=== PATIENT | male | born 1980 | race Two or more races ===

== ENCOUNTER 2017-06-15 23:41 | Emergency (ER) | payer BC ==
--- NOTE | 2017-06-16 00:11 | EDM.PDOC ---
ED HPI GENERAL MEDICAL PROBLEM - General Chief Complaint: Gastrointestinal Problem Stated Complaint: NAUSEA/THROBBING IN STOMACH Time Seen by Provider: 06/16/17 00:11 Source of Information: Reports: Patient History Limitations: Reports: No Limitations - History of Present Illness INITIAL COMMENTS - FREE TEXT/NARRATIVE: 36-year-old male presents to the ED with diffuse lower abdominal discomfort associate with development of rather actively profuse diarrhea starting about 10 :00 he said 5 loose watery stools with no blood since that time. He did have diffuse lower abdominal discomfort last night that's was transient. Of note his had the flu bug over the weekend with nausea vomiting diarrhea but it was short limited. There is a possibility of foodborne illnesses he does eat away from home in good deal. At present his abdominal cramps that are quite severe. Associated nausea vomiting due to the intensity of the pain. Patient is had no previous abdominal surgery. Onset: Today, Sudden Onset Date: 06/15/17 Onset Time: 21:00 Duration: Hour(s): Location: Reports: Abdomen (Abdominal cramping pain with nausea vomiting diarrhea.) Quality: Reports: Ache, Sharp, Stabbing Severity: Moderate Improves with: Reports: None Worsens with: Reports: Other Context: Reports: Sick Contact. Denies: Activity, Exercise (Taking any fluids) , Lifting, Trauma, Other Associated Symptoms: Reports: No Other Symptoms, Nausea/Vomiting, Other ( Diarrhea) Treatments TELEPATHIST: Reports: Other (see below) (9.) - Related Data Allergies Allergy/AdvReac Type Severity Reaction Status Date / Time No Known Allergies Allergy Verified 06/15/17 23:59 Home Meds: Home Meds Dicyclomine [Bentyl] 20 mg PO Q6H PRN #5 tablet 06/16/17 [Rx] Ondansetron [Zofran ODT] 4 mg PO Q6H #5 tab.dis 06/16/17 [Rx] Past Medical History Gastrointestinal History: Reports: Chronic Constipation Psychiatric History: Reports: Anxiety, Depression - Past Surgical History HEENT Surgical History: Reports: Naso-Sinus Surgery Social & Family History - Family History Family Medical History: Noncontributory - Tobacco Use Smoking Status *Q: Never Smoker - Caffeine Use Caffeine Use: Reports: Coffee, Soda - Recreational Drug Use Recreational Drug Use: No ED ROS GENERAL - Review of Systems Review Of Systems: See Below Constitutional: Reports: Chills, Malaise, Weakness, Fatigue, Decreased Appetite. Denies: Fever, Weight Loss HEENT: Reports: No Symptoms Respiratory: Reports: No Symptoms Cardiovascular: Reports: No Symptoms Endocrine: Reports: No Symptoms GI/Abdominal: Reports: Abdominal Pain, Diarrhea (See history of present illness) , Nausea, Vomiting : Reports: No Symptoms Musculoskeletal: Reports: No Symptoms Skin: Reports: No Symptoms Neurological: Reports: No Symptoms Psychiatric: Reports: No Symptoms Hematologic/Lymphatic: Reports: No Symptoms Immunologic: Reports: No Symptoms ED EXAM, GI/ABD - Physical Exam Exam: See Below Exam Limited By: No Limitations General Appearance: Alert, WD/WN, Anxious, Mild Distress Eyes: Bilateral: Normal Appearance (no jaundice) Head: Atraumatic, Normocephalic Neck: Normal Inspection, Supple, Non-Tender, Full Range of Motion. No: Lymphadenopathy (L), Lymphadenopathy (R) Respiratory/Chest: No Respiratory Distress, Lungs Clear, Normal Breath Sounds, No Accessory Muscle Use Cardiovascular: Normal Peripheral Pulses, Regular Rate, Rhythm, No Edema, No Gallop, No Murmur GI/Abdominal Exam: Normal Bowel Sounds, Soft, No Organomegaly, No Distention, No Mass, Tender ( suprapubically). No: Guarding, Rigid, Rebound, Abnormal Bowel Sounds (Male) Exam: No Hernia Back Exam: Normal Inspection, Full Range of Motion. No: CVA Tenderness (L), CVA Tenderness (R) Extremities: Normal Inspection, Non-Tender, No Pedal Edema, Normal Capillary Refill, Pedal Edema Neurological: Alert, Oriented, CN II-XII Intact, Normal Cognition, Normal Gait, No Motor/Sensory Deficits Psychiatric: Normal Affect, Normal Mood Skin Exam: Warm, Dry, Intact, Normal Color, No Rash Course - Vital Signs Last Recorded V/S: Last Vital Signs Temp 35.9 C 06/15/17 23:55 Pulse 66 06/15/17 23:55 Resp 18 06/15/17 23:55 BP 117/72 06/15/17 23:55 Pulse Ox 99 06/15/17 23:55 - Orders/Labs/Meds Labs: Laboratory Tests 06/16/17 06/16/17 Range/Units 00:30 00:30 WBC 10.97 H (4.23-9.07) K/mm3 RBC 5.29 (4.63-6.08) M/mm3 Hgb 14.2 (13.7-17.5) gm/L Hct 43.0 (40.1-51.0) % MCV 81.3 (79.0-92.2) fl MCH 26.8 (25.7-32.2) pg MCHC 33.0 (32.2-35.5) g/dl RDW Std Deviation 41.6 (35.1-43.9) fL Plt Count 210 (163-337) K/mm3 MPV 9.6 (9.4-12.3) fl Neutrophils % (Manual) 90 H (40-60) % Band Neutrophils % 4 (0-10) % Lymphocytes % (Manual) 2 L (20-40) % Atypical Lymphs % 0 % Immat Monocytes % (Man) 0 Monocytes % (Manual) 3 (2-10) % Eosinophils % (Manual) 1 (0.8-7.0) % Basophils % (Manual) 0 L (0.2-1.2) Metamyelocytes % 0 Myelocytes % 0 Promyelocytes % 0 Blast Cells % 0 Plasma Cell % (Manual) 0 Nucleated RBCs 0.0 % Platelet Estimate Adequate RBC Morph Comment Normal Sodium 141 (136-145) mEq/L Potassium 3.9 (3.5-5.1) mEq/L Chloride 104 (98-107) mEq/L Carbon Dioxide 28 (21-32) mEq/L Anion Gap 12.9 (5-15) BUN 17 (7-18) mg/dL Creatinine 1.0 (0.7-1.3) mg/dL Est Cr Clr Drug Dosing 101.14 mL/min Estimated GFR (MDRD) > 60 (>60) mL/min BUN/Creatinine Ratio 17.0 (14-18) Glucose 124 H (74-106) mg/dL Calcium 9.2 (8.5-10.1) mg/dL Total Bilirubin 0.5 (0.2-1.0) mg/dL AST 36 (15-37) U/L ALT 31 (16-63) U/L Alkaline Phosphatase 64 (46-116) U/L C-Reactive Protein < 0.2 (<1.0) mg/dL Total Protein 7.7 (6.4-8.2) g/dl Albumin 4.1 (3.4-5.0) g/dl Globulin 3.6 gm/dL Albumin/Globulin Ratio 1.1 (1-2) Meds: Medications Discontinued Medications Generic Name Dose Route Start Last Admin Trade Name Mike PRN Reason Stop Dose Admin Hydromorphone HCl 0.5 mg 06/16/17 00:24 06/16/17 00:39 Dilaudid IVPUSH 06/16/17 00:25 0.5 mg ONETIME ONE Administration Sodium Chloride 1,000 mls @ 999 mls/hr 06/16/17 00:30 06/16/17 00:49 Normal Saline IV 999 mls/hr ASDIRECTED MACARENA Administration Ketorolac Tromethamine 30 mg 06/16/17 00:30 06/16/17 00:41 Toradol IVPUSH 30 mg ONETIME MACARENA Administration Metoclopramide HCl 10 mg 06/16/17 00:24 06/16/17 00:41 Reglan IVPUSH 06/16/17 00:25 10 mg ONETIME ONE Administration - Radiology Interpretation Free Text/Narrative:: 36-year-old male presents to the ED with diffuse lower abdominal pain associated with nausea vomiting and development of profuse watery high-volume stool loss about 2130 hrs. States she's had 5 bowel movements Coming to the ED. His was ill over the weekend 2-3 days ago with nausea vomiting and mild or diarrhea. She is now improved. There is a small chance that he has contracted a food borne illnesses he does eat out from fast food restaurants and gas stations periodically. He is afebrile. Plan IV D5 normal saline at open. Given Dilaudid 0.5 with Toradol 30 mg IV for pain relief and Reglan 10 mg IV to arrest vomiting. Routine labs to be collected as well as stool for culture and sensitivity white cells if one is provided. - Re-Assessments/Exams Free Text/Narrative Re-Assessment/Exam: 06/16/17 01:16 KUB is within normal limits showing positive gas throughout the small and large bowel. Total white count was found to be 10.93 with a marked left shift of 90% neutrophils and 4% band cells. Chemistry is pending. 06/16/17 01:31 Labs reveal a total white count of 10.97 with a 90% neutrophils and 4% band count. Hemoglobin is 14.2 with hematocrit of 43.0. Chemistry is pending. Chemistry is now available showing a sodium of 141 potassium 3.9 chloride 104 bicarbonate 28. And a gap is 12.9 BUNs 17 creatinine is 1.0 glucose 124 calcium normal at 9.2 liver function normal C-reactive protein less than 0.2. Therefore this is most likely a viral gastroenteritis picture. He's not had any diarrhea stool here and therefore no testing was done. His is still having diarrhea 4 days after illness. He will be discharged home on clear fluid diet. Advise no dairy products apple juice or grape juice until stools are formed backup. We'll give him Zofran 4 mg sublingual every 6 hours when necessary for nausea vomiting and Bentyl 20 mg every 6 hours. 4 abdominal pain relief. No will be provided to keep will refer the work place for the next 2 days until he improves. Departure - Departure Time of Disposition: : Disposition: Home, Self-Care 01 Condition: Fair Clinical Impression: Gastroenteritis - Discharge Information Prescriptions: Dicyclomine [Bentyl] 20 mg PO Q6H PRN #5 tablet PRN Reason: Abdominal cramps/diarrhea Ondansetron [Zofran ODT] 4 mg PO Q6H #5 tab.dis Instructions: Viral Gastroenteritis, Adult, [id number] Referrals: Bruce Linton Jr, MD [Primary Care Provider] - Forms: ED Department Discharge, ED Return to Work/School Form Additional Instructions: Evaluation the emergency room tonight in regards to development of diffuse lower abdominal pain associated with nausea vomiting and then rather profuse watery diarrhea. Done suggest this is most likely a viral pattern in most likely this is a similar organism that is major ill. Treatment in the ED was IV fluids and medication to arrest vomiting, Reglan and you received Dilaudid and Toradol to relieve abdominal cramping pain. Also given Bentyl 20 mg before he left the department for relief of abdominal cramps. Treatment at home is to be Zofran 4 mg under the tongue every 4-6 hours needed for relief of nausea vomiting. Bentyl 20 mg every 6 hours needed for relief of abdominal cramping pain. Diet to be mostly clear fluids by the way of Gatorade or Powerade ideally 5-6 ounces sipped per hour for the next 12 hours or until noon tomorrow. If no further vomiting occurs then may try some soda crackers if this is tolerated advance to broth soup or turkey rice turkey noodle etc. Should stay away from all dairy products and no apple or grape juice until stools are formed back up. Will like to be a couple days before your back on your feet and eating regularly good enough to return to work. Note therefore given to excuse her from the work place for the next 2 days.
[2017-06-16] MEDS ORDERED: HYDROmorphone 0.5 MG/0.5 ML Syringe IVPUSH ONE (00:24)
[2017-06-16] MEDS ORDERED: Metoclopramide 10 MG/2 ML SDV IVPUSH ONE (00:24)
[2017-06-16] MEDS ORDERED: Sodium Chloride 0.9% 1,000 ML IV SCH (00:30)
[2017-06-16] MEDS ORDERED: Ketorolac 30 MG/ML SDV IVPUSH SCH (00:30)
--- NOTE | 2017-06-16 07:46 | CR ---
Abdomen: Supine view of the abdomen was obtained. Comparison: No previous study. Bowel gas pattern is normal. No abnormal calcifications or soft tissue abnormalities are seen. Bony structures are within normal limits for the patient's age. Impression: 1. No abnormality is identified on supine abdominal x-ray. Diagnostic code #1
== END 2017-06-16 01:50 | disposition home or self-care (01) ==
LOC: JD.ED 23:41
DX: K52.9 Noninfective gastroenteritis and colitis, unspecified (principal)
CPT/HCPCS: 36415; 74000; 80053; 85025; 86140; 96361; 96374; 96375; 99284; J1170; J1885; J2765; J7040